=== PATIENT | male | born 1970 | race Caucasian/White ===

== ENCOUNTER → 2016-11-10 | Outpatient (CLI) | payer OTHER ==
[~2016-11-10] MED LIST: MIRA100T PO; OXYC-59 PO
== END | disposition home or self-care (01) ==
LOC: C.PATHSPEC 11:13
PROVIDERS: ATTEND Urology
DX: N40.1 Benign prostatic hyperplasia with lower urinary tract symptoms (principal); R31.0 Gross hematuria; N52.9 Male erectile dysfunction, unspecified; R35.1 Nocturia

== ENCOUNTER → 2017-05-10 | Outpatient (CLI) | payer OTHER | END | disposition home or self-care (01) | LOC: C.LABSPEC 17:30 | PROVIDERS: ATTEND Nurse Practitioner Adult Health | DX: N40.1 Benign prostatic hyperplasia with lower urinary tract symptoms (principal) ==

== ENCOUNTER → 2017-09-29 | Outpatient (CLI) | payer OTHER ==
[~2017-09-29] MED LIST changes: +IBUP600T44 PO; -MIRA100T PO; -OXYC-59 PO
[2017-09-29 13:08] LABS: BASO % 0.4 %; BASO ABS # 0.05 K/uL (0-0.2); EOS % 1.3 %; EOS ABS # 0.17 K/uL (0-0.5); HEMATOCRIT 42.4 % (42-52); HEMOGLOBIN 14.6 g/dL (14.0-18.0); IG# 0.05 K/uL (0.00-0.02); LYMPH % 20.5 %; LYMPH ABS # 2.67 K/uL (1.2-3.4); MEAN CELL VOLUME 88.5 fL (80-100); MEAN CORPUSCULAR HEMOGLOBIN 30.5 pg (25-34); MEAN CORPUSCULAR HGB CONC 34.4 g/dl (32-36); MEAN PLATELET VOLUME 8.8 fL (7.4-10.4); MONO ABS # 0.65 K/uL (0.11-0.59); NEUT % 72.4 %; NEUT ABS # 9.41 K/uL (1.4-6.5); PLATELET COUNT 293 K/uL (130-400); RED CELL DISTRIBUTION WIDTH CV 13.5 % (11.5-14.5)
[2017-09-29 14:17] LABS: BLOOD UREA NITROGEN 15 mg/dl (7-18); CALCIUM 9.4 mg/dl (8.5-10.1); CARBON DIOXIDE 28 mmol/L (21-32); CREATININE 1.03 mg/dl (0.60-1.40); GLUCOSE 88 mg/dl (70-99); SODIUM 138 mmol/L (136-145)
== END | disposition home or self-care (01) ==
LOC: C.LAB 11:58
PROVIDERS: ATTEND Urology
DX: N40.1 Benign prostatic hyperplasia with lower urinary tract symptoms (principal)

== ENCOUNTER 2017-10-19 09:25 | Day surgery (SDC) | payer OTHER ==
[2017-08-25 13:29] VITALS: Ht 185.4 cm; Wt 93.8 kg
--- NOTE | 2017-08-25 13:49 | PAT Medication Instructions ---
Service Date Aug 25, 2017. Current Home Medication List Ibuprofen (Motrin), 600 MG PO UD PRN for PRN Medication Instructions For Your Scheduled Surgery - Check with surgeon for instructions: Ibuprofen (Motrin), 600 MG PO UD PRN for PRN If you have any questions please call us at [phone] or [phone] or [phone]
--- NOTE | 2017-08-25 14:16 | DIAGNOSTIC IMAGING REPORT ---
CHEST 2 VIEWS ROUTINE HISTORY: 46 years-old Male PAT preoperative exam. No acute chest complaints. COMPARISON: Chest radiographs 08/10/2013 TECHNIQUE: PA and lateral views of the chest FINDINGS: Ill-defined hazy opacity of the left lung base is favored to reflect soft tissue composite density artifact, unchanged. Cardiomediastinal and hilar silhouettes are within normal limits. There is no pneumothorax, pleural effusion, focal airspace consolidation or overt pulmonary edema. The bones of the chest appear grossly intact. Mild endplate spurring of the spine. IMPRESSION: No acute process. The above report was generated using voice recognition software. It may contain grammatical, syntax or spelling errors. Electronically signed by: Bebeto Harris M.D. 08/25/2017 2:15 PM Dictated Date/Time: 08/25/2017 2:13 PM
[2017-08-25 14:54] LABS: BASO % 0.4 %; BASO ABS # 0.04 K/uL (0-0.2); EOS ABS # 0.09 K/uL (0-0.5); HEMATOCRIT 43.2 % (42-52); HEMOGLOBIN 14.7 g/dL (14.0-18.0); IG# 0.03 K/uL (0.00-0.02); LYMPH % 24.9 %; LYMPH ABS # 2.25 K/uL (1.2-3.4); MEAN CELL VOLUME 89.8 fL (80-100); MEAN CORPUSCULAR HEMOGLOBIN 30.6 pg (25-34); MEAN PLATELET VOLUME 9.1 fL (7.4-10.4); MONO % 6.2 %; MONO ABS # 0.56 K/uL (0.11-0.59); NEUT % 67.2 %; NEUT ABS # 6.05 K/uL (1.4-6.5); PLATELET COUNT 298 K/uL (130-400); RED CELL DISTRIBUTION WIDTH CV 13.3 % (11.5-14.5); RED CELL DISTRIBUTION WIDTH SD 43.9 fL (36.4-46.3); WHITE BLOOD COUNT 9.02 K/uL (4.8-10.8)
[2017-08-25 14:59] LABS: CALCIUM 9.3 mg/dl (8.5-10.1); CREATININE 0.86 mg/dl (0.60-1.40); POTASSIUM 3.9 mmol/L (3.5-5.1)
[~2017-10-19] VITALS: Ht 185.4 cm; Wt 93.8 kg
[~2017-10-19 09:25] MED LIST changes: +ATROPINE SULFATE 0.1 MG/ML 5ML SYR IV PRN; +CIPROFLOXACIN / D5W 400 MG IV SCH; +EpHEDrine SULFATE INJ 50 MG/ML AMP IV PRN; +FENTANYL CITRATE INJ 50 MCG/1 ML 2 ML VIAL IV PRN; +HYDROmorphone INJ 1 MG/ML SYR IV PRN; +LACTATED RINGER'S 1000ML 1,000 ML IV SCH; +ONDANSETRON INJ 2 MG/ML 2 ML VIAL IV PRN
[2017-10-19 09:49] VITALS: BP 114/78; PULSE 61; TEMP 36.9; O2SAT 97
[2017-10-19] MEDS ORDERED: MIDAZOLAM HCL 1 MG/ML 2ML VIAL ONE ×2 (10:08→10:38)
[2017-10-19] MEDS ORDERED: PROPOFOL IV EMULSION 10 MG/ML 20 ML VIAL IV ONE ×2 (10:08→10:23)
[2017-10-19] MEDS ORDERED: ONDANSETRON INJ 2 MG/ML 2 ML VIAL ONE (10:08)
[2017-10-19] MEDS ORDERED: FENTANYL CITRATE INJ 50 MCG/1 ML 2 ML VIAL ONE (10:08)
[2017-10-19] MEDS ORDERED: DEXAMETHASONE SOD INJ 4 MG/ML VIAL ONE (10:08)
[2017-10-19] MEDS ORDERED: LIDOCAINE HCL 2% 2 ML VIAL (20MG/ML) ONE (10:08)
--- NOTE | 2017-10-19 10:11 | History & Physical Bridge Note ---
H&P Re-Evaluation Bridge Note: I have examined the patient, reviewed the History & Physical and in the interval since the performance of the History & Physical I have noted the following changes of clinical significance: No changes noted
[2017-10-19] MEDS ORDERED: FLUMAZENIL 0.1 MG/1 ML 10 ML VIAL IV ONE (10:43)
--- NOTE | 2017-10-19 11:04 | [facility] Post Operative Brief Note ---
Immediate Operative Summary Operative Date Oct 19, 2017. Pre-Operative Diagnosis Benign prostatic hyperplasia with urinary obstruction Post-Operative Diagnosis Benign prostatic hyperplasia with urinary obstruction Procedure(s) Performed Cystoscopy, Urolift Surgeon Dr. Luigi Sumner Supervisor [employer] Surgeon(s) None Estimated Blood Loss 0 mL Findings Consistent with Post-Op Diagnosis Specimens No pathology specimens per surgeon Drains None Anesthesia Type General Complication(s) none Disposition Accompanied Pt To Recover: no Disposition: Recovery Room / PACU
[2017-10-19 11:08] VITALS: BP 105/66; PULSE 69; TEMP 36.4; O2SAT 96
[2017-10-19] MEDS ORDERED: CIPR-255 PO (11:19)
[2017-10-19] MEDS ORDERED: PHEN-775 PO (11:19)
--- NOTE | 2017-10-19 11:21 | Discharge Instructions ---
Discharge Instructions Date of Service Oct 19, 2017. Admission Reason for Admission: Benigh Prostatic Hyperplasia Discharge Discharge Diagnosis / Problem: BPH s/p Urolift Discharge Goals Goal(s): Improve function, Therapeutic intervention Activity Recommendations Activity Limitations: as noted below Lifting Limitations: no more than 25 pounds, gradually increase as tolerated Exercise/Sports Limitations: rest today, gradually increase as tolerated May Resume Sexual Activity: after two weeks, after follow-up appointment Shower/Bathe: no limitations Driving or Machine Use: resume 1 day after discharge . Instructions / Follow-Up Instructions / Follow-Up Follow-up in office as scheduled. Current Hospital Diet Patient's current hospital diet: Discharge Diet Recommended Diet: Regular Diet (good fluid intake) Procedures Procedures Performed: Cystoscopy, Urolift Pending Studies Studies pending at discharge: no Medical Emergencies . Who to Call and When: Medical Emergencies: If at any time you feel your situation is an emergency, please call 911 immediately. . Non-Emergent Contact Non-Emergency issues call your: Urologist Call Non-Emergent contact if: you have a fever, temperature is above 101, your pain is not controlled, your pain is worsening, your pain is unusual for you, your pain is concerning you, you have any medication questions . . "Provider Documentation" section prepared by Luigi Sumner. . [place] Drug Monitoring Program Search Results: patient reviewed within database, see additional documentation (numerous large volume Rx, no further provided)
[2017-10-19] MEDS ORDERED: PHENAZOPYRIDINE HCL 200 MG TAB PO PRN (11:30)
[2017-10-19] MEDS ORDERED: OXYCODONE/ACETAMINOPHEN 5-325 TAB PO PRN ×2 (11:30)
[2017-10-19 11:33] VITALS: BP 127/84; PULSE 66; TEMP 36.2; O2SAT 95
--- NOTE | 2017-10-19 11:35 | [facility] Operative Report ---
Operative Report Operative Date Oct 19, 2017. Pre-Operative Diagnosis Benign prostatic hyperplasia with urinary obstruction Post-Operative Diagnosis Benign prostatic hyperplasia with urinary obstruction Procedure(s) Performed Cystoscopy, Urolift x [address] Luigi Sumner Professional Benefits Sales Consultant Surgeon(s) None Estimated Blood Loss 0 mL Findings Open fossa after 4 Urolift implants, 5 implanted with one removed due to bladder neck proximity. Specimens No pathology specimens per surgeon Drains None Anesthesia Type General Complication(s) none Disposition no Recovery Room / PACU Indications 46-year-old male with bothersome voiding symptoms, somewhat improved on alfuzosin who desires implantation of Urolift to manage his disease. Please see H&P for further details. Intravenous ciprofloxacin provided for antibiotic coverage. Description of Procedure Patient was properly identified and brought into the operative suite after identification for proper consent the chart. Monitored anesthesia care with sedation was initiated and patient was prepped and draped in the standard fashion for this procedure. Full timeout procedure was followed. Urolift scope was advanced into the bladder and bladder was evaluated demonstrating lateral lobe hypertrophy with mild bladder neck elevation, grade 1-2 trabeculation of the bladder with no intravesical lesions, papillary masses or calculi. Ureteral orifices were noted to be in the normal anatomic position bilaterally. Urolift implants were placed 4 at the bladder neck bilaterally and at the level of the verumontanum with a good anterior opening and passage within the prostatic fossa. On careful inspection the left bladder neck implant was felt to be somewhat close to the bladder neck. To minimize the odds of encrustation or stone formation this was grasped with a stent grasper and removed without difficulties. This was replaced slightly more distal for a total of 5 implants placed. Excellent urethral channel was again noted. Bladder was drained and cystoscope was removed. Anesthesia was reversed and patient was transferred to the recovery room in stable condition. Follow-up care: Patient will be discharged home after voiding today in recovery. Prescription for ciprofloxacin and Pyridium as provided. Outpatient postoperative appointment is confirmed. Patient is to contact our office with any fevers, chills, nausea, vomiting or other difficulties in the postoperative period. I attest to the content of the Intraoperative Record and any orders documented therein. Any exceptions are noted below.
--- NOTE | 2017-10-19 12:02 | Anesthesiology Progress Note ---
Anesthesia Post Op Note Date & Time Oct 19, 2017 at 12:01 Vital Signs Pain Intensity: 0 Vital Signs Past 12 Hours Date Time Temp Pulse Resp B/P (MAP) Pulse Ox O2 Delivery O2 Flow Rate FiO2 10/19/17 11:33 36.2 66 18 127/84 95 Room Air 10/19/17 11:08 36.4 69 16 105/66 96 Room Air 10/19/17 09:49 36.9 61 18 114/78 (90) 97 Room Air Notes Mental Status: alert / awake / arousable, participated in evaluation Pt Amnestic to Procedure: Yes Nausea / Vomiting: adequately controlled Pain: adequately controlled Airway Patency, RR, SpO2: stable & adequate BP & HR: stable & adequate Hydration State: stable & adequate Anesthetic Complications: no major complications apparent
== END 2017-10-19 11:53 | disposition home or self-care (01) ==
LOC: C.ACU 09:25
PROVIDERS: ATTEND Urology
DX: N40.1 Benign prostatic hyperplasia with lower urinary tract symptoms (principal); N13.9 Obstructive and reflux uropathy, unspecified; R35.1 Nocturia; Z90.89 Acquired absence of other organs; Z98.890 Other specified postprocedural states; F17.200 Nicotine dependence, unspecified, uncomplicated; Z83.3 Family history of diabetes mellitus; Z84.1 Family history of disorders of kidney and ureter; Z80.8 Family history of malignant neoplasm of other organs or systems; Z80.42 Family history of malignant neoplasm of prostate